=== PATIENT | female | born 1950 | race Caucasian/White ===

== ENCOUNTER 2017-06-17 11:02 | Inpatient (IN) | payer MEDICARE, BC ==
[~2017-06-17] VITALS: Ht 160 cm; Wt 102.3 kg
[2017-06-17] MEDS ORDERED: diltiazem 5mg/ml 5ml inj. IV ONE (11:25)
[2017-06-17 11:34] LABS: BASOPHILS % (AUTO) 0.5 % (0-1); EOSINOPHILS # (AUTO) 0.2 X10'3 (0-0.9); EOSINOPHILS % (AUTO) 3.5 % (0-6); HEMATOCRIT 44.9 % (35.0-45.0); HEMOGLOBIN 15.5 g/dl (12.0-16.0); LYMPHOCYTES # (AUTO) 1.2 X10'3 (1.1-4.8); LYMPHOCYTES % (AUTO) 18.9 % (21-51); MEAN CORPUSCULAR HEMOGLOBIN 32.9 PG (27.0-31.0); MEAN CORPUSCULAR HGB CONC 34.5 % (33.0-36.5); MEAN CORPUSCULAR VOLUME 95.6 FL (78-98); MEAN PLATELET VOLUME 9.1 FL (7.4-10.4); MONOCYTES # (AUTO) 0.5 X10'3 (0-0.9); MONOCYTES % (AUTO) 7.8 % (2-12); NEUTROPHILS # (AUTO) 4.3 X10'3 (1.8-7.7); NEUTROPHILS % (AUTO) 69.3 % (42-75); PLATELET COUNT 153 X10'3 (140-440); RED CELL DISTRIBUTION WIDTH 13.1 % (11.5-14.5); WHITE BLOOD COUNT 6.2 X10'3 (4.5-11.0)
[2017-06-17] MEDS: metoprolol tartrate 1mg/ml inj IV SCH ×6 (12:02→13:10)
[2017-06-17 12:09] LABS: INR 1.1 INR; PARTIAL THROMBOPLASTIN TIME 28 SECONDS (22-32); PROTHROMBIN TIME 11.3 SECONDS (9.0-12.0)
[2017-06-17 12:14] LABS: ALANINE AMINOTRANSFERASE 26 U/L (12-78); ALBUMIN 4.1 G/DL (3.4-5.0); ALBUMIN/GLOBULIN RATIO 1.1 (1.1-1.5); ALKALINE PHOSPHATASE 54 IU/L (46-116); ANION GAP 12 (8-16); ASPARTATE AMINO TRANSFERASE 21 U/L (10-37); BILIRUBIN,TOTAL 0.8 MG/DL (0.1-1.0); BLOOD UREA NITROGEN 6 MG/DL (7-18); CALCIUM 9.6 MG/DL (8.5-10.1); CHLORIDE 93 MMOL/L (99-107); CREATININE 0.86 MG/DL (0.40-0.90); GLUCOSE 107 MG/DL (70-104); POTASSIUM 4.3 MMOL/L (3.5-5.1); SODIUM 130 MMOL/L (135-145); TOTAL CARBON DIOXIDE 25.4 MMOL/L (24-32); eGFR 66 ML/MIN
[2017-06-17] MEDS ORDERED: acetaminophen 325mg tablet PO PRN (13:20)
[2017-06-17] MEDS ORDERED: magnesium hydroxide 30ml (MOM) UD suspension PO PRN (13:20)
[2017-06-17] MEDS ORDERED: potassium Cl 20 mEq SR tablet PO PRN ×2 (13:20)
[2017-06-17] MEDS ORDERED: ondansetron/PF 4mg/2ml inj IV PRN (13:20)
[2017-06-17] MEDS ORDERED: magnesium 4gm in 100ml NS 100 ML IV PRN (13:20)
[2017-06-17] MEDS ORDERED: magnesium 2GM in 50ml NS 50 ML IV PRN (13:20)
[2017-06-17] MEDS ORDERED: mag hydrox/Alum hydrox/simeth 30ml oral suspension PO PRN (13:20)
[2017-06-17] MEDS ORDERED: potassium Cl 40MEQ/NS 500ml 500 ML IV PRN ×2 (13:20)
[2017-06-17] MEDS ORDERED: magnesium Cl slow-release 64mg tablet PO PRN (13:20)
[2017-06-17] MEDS: normal saline 1000ml 1,000 ML IV SCH (13:35)
[2017-06-17] MEDS: diltiazem-NS 100mg/100ml 100 ML IV SCH (14:03)
[2017-06-17 14:23] LABS: ETHANOL < 0.010 GM/DL (0.0-0.010)
[2017-06-17 14:42] LABS: CLARITY,URINE CLEAR (Clear); COLOR,URINE STRAW (Yellow); GLUCOSE, URINE NEGATIVE (Neg); KETONES,URINE TRACE mg/dl (Neg); LEUKOCYTE ESTERASE ,URINE NEGATIVE (Neg); NITRITES, URINE NEGATIVE (Neg); OCCULT BLOOD,URINE NEGATIVE (Neg); PROTEIN,URINE NEGATIVE (Neg); UROBILINOGEN,URINE 0.2 E.U/dL (0.2-1.0)
[2017-06-17 14:47] LABS: UA COLLECTION TYPE CLN CATCH MIDSTREAM
[2017-06-17 14:52] LABS: URINE AMPHETAMINE SCREEN NEGATIVE (Neg); URINE BARBITUATE SCREEN NEGATIVE (Neg); URINE BENZODIAZEPINES SCREEN NEGATIVE (Neg); URINE CANNABINOID SCREEN NEGATIVE (Neg); URINE COCAINE SCREEN NEGATIVE (Neg); URINE METHADONE SCREEN NEGATIVE (Neg); URINE OPIATE SCREEN NEGATIVE (Neg); URINE PHENCYCLIDINE SCREEN NEGATIVE (Neg)
[2017-06-17 15:06] VITALS: BP 137/98
[2017-06-17 19:00] VITALS: BP 144/97
[2017-06-17] MEDS: thiamine 100mg tablet PO SCH (19:26)
[2017-06-17] MEDS: apixaban 5mg tablet PO SCH (19:27)
[2017-06-17] MEDS: LORazepam 1 MG tablet PO PRN (19:30)
[2017-06-17] MEDS ORDERED: enoxaparin 100mg/ml syringe SUBCUT SCH (20:00)
[2017-06-17 21:00] VITALS: BP 158/92
[2017-06-17 23:00] VITALS: BP 152/94
[2017-06-18] VITALS (11 sets, daily range): BP systolic 101–141; BP diastolic 59–114
[2017-06-18] MEDS: normal saline 1000ml 1,000 ML IV SCH ×3 (00:07→19:56)
[2017-06-18] MEDS: diltiazem-NS 100mg/100ml 100 ML IV SCH ×2 (03:07→21:43)
[2017-06-18 05:20] LABS: BASOPHILS % (AUTO) 0.7 % (0-1); EOSINOPHILS # (AUTO) 0.2 X10'3 (0-0.9); EOSINOPHILS % (AUTO) 3.8 % (0-6); HEMOGLOBIN 14.4 g/dl (12.0-16.0); LYMPHOCYTES % (AUTO) 18.2 % (21-51); MEAN CORPUSCULAR HEMOGLOBIN 33.1 PG (27.0-31.0); MEAN CORPUSCULAR HGB CONC 34.3 % (33.0-36.5); MEAN CORPUSCULAR VOLUME 96.5 FL (78-98); MEAN PLATELET VOLUME 8.9 FL (7.4-10.4); MONOCYTES # (AUTO) 0.5 X10'3 (0-0.9); NEUTROPHILS # (AUTO) 3.7 X10'3 (1.8-7.7); NEUTROPHILS % (AUTO) 67.3 % (42-75); PLATELET COUNT 133 X10'3 (140-440); RED BLOOD COUNT 4.35 X10'6 (4.20-5.60); RED CELL DISTRIBUTION WIDTH 13.3 % (11.5-14.5); WHITE BLOOD COUNT 5.5 X10'3 (4.5-11.0)
[2017-06-18 05:53] LABS: ALANINE AMINOTRANSFERASE 29 U/L (12-78); ALBUMIN 3.8 G/DL (3.4-5.0); ALKALINE PHOSPHATASE 51 IU/L (46-116); ANION GAP 11 (8-16); ASPARTATE AMINO TRANSFERASE 19 U/L (10-37); BILIRUBIN,TOTAL 0.8 MG/DL (0.1-1.0); BLOOD UREA NITROGEN 7 MG/DL (7-18); BUN/CREATININE RATIO 8.4 (6.6-38.0); CALCIUM 9.2 MG/DL (8.5-10.1); CHLORIDE 100 MMOL/L (99-107); CREATININE 0.83 MG/DL (0.40-0.90); GLUCOSE 100 MG/DL (70-104); MAGNESIUM 2.1 MG/DL (1.5-2.4); POTASSIUM 4.1 MMOL/L (3.5-5.1); SODIUM 136 MMOL/L (135-145); TOTAL CARBON DIOXIDE 25.2 MMOL/L (24-32); TOTAL PROTEIN 7.6 G/DL (6.4-8.2); eGFR 69 ML/MIN
[2017-06-18] MEDS: thiamine 100mg tablet PO SCH ×2 (07:46→19:55)
[2017-06-18] MEDS: apixaban 5mg tablet PO SCH ×2 (07:46→19:55)
[2017-06-18] MEDS: K and/or MAG REPLACEMENT MC SCH (07:47)
[2017-06-18] MEDS: LORazepam 1 MG tablet PO PRN (14:05)
[2017-06-18] MEDS ORDERED: BIMA5DRO4 EACHEYE (14:50)
[2017-06-18] MEDS ORDERED: TIMO5DRO32 EACHEYE (14:50)
[2017-06-18] MEDS: diltiazem 30mg tablet PO SCH (19:55)
[2017-06-19] VITALS: BP 107/47
[2017-06-19 01:00] VITALS: BP 94/57
[2017-06-19 02:00] VITALS: BP 125/72
[2017-06-19] MEDS: diltiazem 30mg tablet PO SCH ×3 (02:41→14:02)
[2017-06-19 03:00] VITALS: BP 108/60
[2017-06-19] MEDS: normal saline 1000ml 1,000 ML IV SCH (05:16)
[2017-06-19 05:40] LABS: BASOPHILS % (AUTO) 0.6 % (0-1); EOSINOPHILS # (AUTO) 0.2 X10'3 (0-0.9); EOSINOPHILS % (AUTO) 4.2 % (0-6); HEMATOCRIT 35.1 % (35.0-45.0); LYMPHOCYTES # (AUTO) 0.8 X10'3 (1.1-4.8); LYMPHOCYTES % (AUTO) 19.6 % (21-51); MEAN CORPUSCULAR HEMOGLOBIN 32.9 PG (27.0-31.0); MEAN CORPUSCULAR HGB CONC 34.2 % (33.0-36.5); MEAN CORPUSCULAR VOLUME 96.3 FL (78-98); MEAN PLATELET VOLUME 8.6 FL (7.4-10.4); MONOCYTES # (AUTO) 0.4 X10'3 (0-0.9); MONOCYTES % (AUTO) 9.3 % (2-12); NEUTROPHILS # (AUTO) 2.6 X10'3 (1.8-7.7); NEUTROPHILS % (AUTO) 66.3 % (42-75); PLATELET COUNT 110 X10'3 (140-440); RED BLOOD COUNT 3.64 X10'6 (4.20-5.60); RED CELL DISTRIBUTION WIDTH 13.4 % (11.5-14.5); WHITE BLOOD COUNT 3.9 X10'3 (4.5-11.0)
[2017-06-19 06:15] LABS: ALANINE AMINOTRANSFERASE 22 U/L (12-78); ALBUMIN 3.2 G/DL (3.4-5.0); ALKALINE PHOSPHATASE 41 IU/L (46-116); ANION GAP 9 (8-16); ASPARTATE AMINO TRANSFERASE 13 U/L (10-37); BILIRUBIN,TOTAL 0.4 MG/DL (0.1-1.0); BLOOD UREA NITROGEN 7 MG/DL (7-18); CALCIUM 8.6 MG/DL (8.5-10.1); CHLORIDE 103 MMOL/L (99-107); CREATININE 0.78 MG/DL (0.40-0.90); GLUCOSE 106 MG/DL (70-104); MAGNESIUM 2.1 MG/DL (1.5-2.4); POTASSIUM 4.2 MMOL/L (3.5-5.1); SODIUM 136 MMOL/L (135-145); TOTAL CARBON DIOXIDE 24.2 MMOL/L (24-32); TOTAL PROTEIN 6.4 G/DL (6.4-8.2); eGFR 74 ML/MIN
[2017-06-19] MEDS: K and/or MAG REPLACEMENT MC SCH (08:00)
[2017-06-19] MEDS: thiamine 100mg tablet PO SCH (08:28)
[2017-06-19] MEDS: apixaban 5mg tablet PO SCH (08:28)
[2017-06-19 11:00] VITALS: BP 119/69
[2017-06-19] MEDS ORDERED: DILT30TA5 PO (11:03)
[2017-06-19] MEDS ORDERED: APIX5TAB3 PO (11:03)
== END 2017-06-19 14:49 | disposition home or self-care (01) | DRG 309 ==
LOC: ER 11:03 → ED HOLD 13:16 → PCU 3S 14:24
PROVIDERS: ADMIT Internal Medicine; ATTEND Internal Medicine
DX: I48.91 Unspecified atrial fibrillation (principal); E87.1 Hypo-osmolality and hyponatremia; F10.10 Alcohol abuse, uncomplicated; F41.9 Anxiety disorder, unspecified; F41.0 Panic disorder [episodic paroxysmal anxiety]; I10 Essential (primary) hypertension; Z79.01 Long term (current) use of anticoagulants; Z79.899 Other long term (current) drug therapy
CPT/HCPCS: 36415; 71045; 80053; 80305; 80320; 81003; 83735; 84443; 84484; 85025; 85610; 85730; 93005; 99285; J3490; J7030

== ENCOUNTER 2020-04-24 19:40 | Emergency (ER) | payer MEDICARE, BC ==
[~2020-04-24] VITALS: Ht 160 cm; Wt 108.6 kg
[~2020-04-24 19:40] MED LIST: APIX5TAB3 PO; BIMA5DRO4 EACHEYE; DILT30TA5 PO; TIMO5DRO32 EACHEYE
[2020-04-24 19:41] VITALS: BP 168/97
== END 2020-04-24 21:14 | disposition home or self-care (01) ==
LOC: ER 19:41
DX: I83.893 Varicose veins of bilateral lower extremities with other complications (principal); I48.91 Unspecified atrial fibrillation; I25.10 Atherosclerotic heart disease of native coronary artery without angina pectoris; I10 Essential (primary) hypertension; Z72.89 Other problems related to lifestyle; Z79.899 Other long term (current) drug therapy
CPT/HCPCS: 99283